=== PATIENT | female | born 1950 | race Caucasian/White ===

== ENCOUNTER → 2017-02-25 | Outpatient (CLI) | payer MEDICARE ==
[~2017-02-25] MED LIST: ASPI-586 PO; ATOR40TA2 PO; ESTR0.3T PO; IPR14IN INH; LORA10TA7 PO; LSNP10T PO
== END ==
LOC: LAB 07:57
PROVIDERS: ATTEND Internal Medicine Hematology & Oncology
DX: C34.32 Malignant neoplasm of lower lobe, left bronchus or lung (principal)
CPT/HCPCS: 36415; 82565; 84520

== ENCOUNTER → 2017-02-27 | Outpatient (CLI) | payer MEDICARE ==
--- NOTE | 2017-02-27 12:58 | Diagnostic Imaging Report ---
PROCEDURE: CT chest with contrast only. TECHNIQUE: Multiple contiguous axial images were obtained through the chest after administration of intravenous contrast. INDICATION: Lung cancer surveillance. COMPARISON: CT chest of 03/26/[address] abdomen pelvis of 10/25/2016. FINDINGS: Lungs and airway: Stable surgical changes from left lower lobectomy. Pulmonary mass, nodule or consolidation that would suggest recurrent or metastatic pulmonary disease. Pleura: Postoperative smooth pleural thickening in the lower left hemithorax is unchanged. No pleural effusion or pneumothorax. Heart and mediastinum: Stable well-circumscribed hypodensities left thyroid lobe. No supraclavicular or axillary lymphadenopathy. No mediastinal, hilar or juxtaphrenic lymphadenopathy. Stable small hiatus hernia. Stable cardiomegaly without pericardial effusion. Normal caliber thoracic aorta. Upper abdomen: Stable well-circumscribed hypodensities in the left hepatic lobe, likely representing multiple cysts. Stable splenule. No evidence of neoplastic process in the upper abdomen. Musculoskeletal: No concerning focal osseous lesions in the thorax. IMPRESSION: 1. Stable postoperative changes of left lower lobectomy. No evidence of recurrent or metastatic disease in the chest. 2. Stable small hiatus hernia. Dictated by: Dictated on workstation # [id number]
== END ==
LOC: RAD 10:27
PROVIDERS: ATTEND Internal Medicine Hematology & Oncology
DX: C34.32 Malignant neoplasm of lower lobe, left bronchus or lung (principal); K44.9 Diaphragmatic hernia without obstruction or gangrene
CPT/HCPCS: 71260; Q9967